=== PATIENT | male | born 1990 | race Caucasian/White ===

== ENCOUNTER 2023-04-18 06:34 | Day surgery (SDC) | payer BC, OTHER ==
[~2023-04-18 06:34] MED LIST: Lactated Ringers 1,000 ML IV SCH
[2023-04-18] MEDS ORDERED: fentaNYL 50 MCG/ML SDV IVPUSH PRN (07:04)
[2023-04-18] MEDS ORDERED: Albuterol 0.083% 2.5 MG/3 ML Neb Soln NEB PRN (07:04)
[2023-04-18] MEDS ORDERED: Metoclopramide 10 MG/2 ML SDV IVPUSH PRN (07:04)
[2023-04-18] MEDS ORDERED: droPERidol 5 MG/2 ML SDV IVPUSH PRN (07:04)
[2023-04-18] MEDS ORDERED: Ondansetron 4 MG/2 ML SDV IVPUSH PRN (07:04)
[2023-04-18] MEDS ORDERED: Morphine 2 MG/ML SYRINGE IVPUSH PRN (07:04)
[2023-04-18] MEDS ORDERED: HYDROmorphone 1 MG/ML Syringe IVPUSH PRN (07:04)
[2023-04-18] MEDS ORDERED: Naloxone 0.4 MG/ML SDV IVPUSH PRN (07:04)
[2023-04-18] MEDS ORDERED: Dexmedetomidine 200 MCG/2 ML SDV ONE (07:27)
[2023-04-18] MEDS ORDERED: Propofol 200 MG/20 ML SDV ONE (07:27)
[2023-04-18] MEDS ORDERED: fentaNYL 100 MCG/2 ML SDV ONE (07:28)
[2023-04-18] MEDS ORDERED: Water For Injection, Sterile 20 ML ONE (07:28)
[2023-04-18] MEDS ORDERED: Lidocaine 1% 5 ML VIAL ONE (07:30)
[2023-04-18] MEDS ORDERED: Bupivacaine 0.5% 30 ML SDV ONE (07:40)
[2023-04-18] MEDS ORDERED: Dexamethasone 4 MG/ML 5 ML MDV ONE (08:09)
[2023-04-18] MEDS ORDERED: Ondansetron 4 MG/2 ML SDV ONE (08:09)
[2023-04-18] MEDS ORDERED: Ketorolac 30 MG/ML SDV ONE (09:17)
[2023-04-18] MEDS ORDERED: Acetaminophen/HYDROcodone 325-5 MG Tab PO PRN (09:52)
[2023-04-18] MEDS ORDERED: Lactated Ringers 1,000 ML IV SCH (10:00)
== END 2023-04-18 11:50 | disposition home or self-care (01) ==
LOC: MW.SDS 06:34
PROVIDERS: ATTEND Surgery
DX: D17.21 Benign lipomatous neoplasm of skin and subcutaneous tissue of right arm (principal); D17.22 Benign lipomatous neoplasm of skin and subcutaneous tissue of left arm
CPT/HCPCS: 24071; 24075; J1100; J1885; J2405; J2704; J3010; J3490; J7120; 00400